=== PATIENT | male | born 1940 | race Caucasian/White ===

== ENCOUNTER 2020-02-06 09:39 | Outpatient (REF) | payer MEDICARE, SELFPAY ==
[2020-02-06 11:15] LABS: MANUAL DIFF FLAG NO
[2020-02-06 11:28] LABS: Eosinophils Absolute Auto 0.2 X10*3/uL (0.0-0.4); Eosinophils Percent Auto 3.9 % (0-4); Hemoglobin 13.2 g/dl (14.0-18.0); Imm Gran Abs Auto 0.01 X10*3/uL (0.00-0.03); Imm Gran Pct Auto 0.3 % (0.0-0.4); Lymphocytes Absolute Auto 0.9 X10*3/uL (1.2-4.9); Lymphocytes Percent Auto 24.3 % (20-40); Mean Corpuscular HGB Conc 32.2 g/dl (31.0-36.0); Mean Corpuscular Hemoglobin 31.9 pg (27.0-33.0); Monocytes Absolute Auto 0.4 X10*3/uL (0.1-1.2); Monocytes Percent Auto 9.3 % (2-11); Neutrophils Absolute Auto 2.4 X10*3/uL (2.0-8.3); Neutrophils Percent Auto 61.2 % (45-73); Platelet Count 190 X10*3/uL (160-400); Red Blood Count 4.14 X10*6/uL (4.60-5.80); Red Cell Distribution Width 12.4 % (11.0-16.0); White Blood Count 3.9 X10*3/uL (4.8-10.8)
[2020-02-06 12:36] LABS: Albumin Level 3.6 g/dL (3.5-5.0); Alkaline Phosphatase 70 U/L (39-117); Anion Gap 12 (12-20); Aspartate Amino Transferase 13 U/L (5-37); Bilirubin Total 0.6 mg/dL (0.0-1.0); Blood Urea Nitrogen 20 mg/dL (9-16); Calcium 8.5 mg/dL (8.4-10.2); Carbon Dioxide 28 mmol/L (22-29); Chloride 108 mmol/L (96-108); Cholesterol 131 mg/dL; Estimated Glomerular Filt Rate > 60; Glucose Fasting 86 mg/dL (60-99); HDL Cholesterol 52 mg/dL; LDL Cholesterol Calculated 58 mg/dl; Potassium 4.2 mmol/l (3.3-5.1); Sodium 144 mmol/L (135-145); Total Protein 6.2 g/dL (6.5-8.0); Triglycerides 109 mg/dL
[2020-02-06 13:06] LABS: Alanine Aminotransferase < 6 U/L (0-40)
== END 2020-02-06 09:40 | disposition home or self-care (01) ==
LOC: HO.LAB 09:39
PROVIDERS: PCP Internal Medicine Medical Oncology; Visit Provider Internal Medicine Medical Oncology
DX: E78.5 Hyperlipidemia, unspecified (principal); E55.9 Vitamin D deficiency, unspecified; E66.3 Overweight
CPT/HCPCS: 36415; 80053; 80061; 85025

== ENCOUNTER → 2020-07-12 10:28 | Outpatient (BNVA) | payer MEDICARE, SELFPAY | PROVIDERS: PCP Internal Medicine Medical Oncology; Visit Provider Urology | DX: N40.1 Benign prostatic hyperplasia with lower urinary tract symptoms (principal); N13.8 Other obstructive and reflux uropathy; R35.1 Nocturia; R39.12 Poor urinary stream | CPT/HCPCS: 51798; 81002; 99212 ==

== ENCOUNTER 2020-08-10 09:43 | Outpatient (REF) | payer MEDICARE, SELFPAY | END 2020-08-10 09:44 | disposition home or self-care (01) | LOC: HO.LAB 09:43 | PROVIDERS: PCP Internal Medicine Medical Oncology; Visit Provider Urology | DX: Z13.89 Encounter for screening for other disorder (principal) ==

== ENCOUNTER 2020-08-13 10:05 | Outpatient (REF) | payer MEDICARE, SELFPAY ==
[2020-08-13 10:56] LABS: MANUAL DIFF FLAG NO
[2020-08-13 11:01] LABS: Basophils Percent Auto 0.7 % (0-2); Eosinophils Absolute Auto 0.2 X10*3/uL (0.0-0.4); Eosinophils Percent Auto 5.4 % (0-4); Hematocrit 43.2 % (42-52); Hemoglobin 13.8 g/dl (14.0-18.0); Lymphocytes Percent Auto 24.4 % (20-40); Mean Corpuscular HGB Conc 31.9 g/dl (31.0-36.0); Mean Corpuscular Hemoglobin 30.9 pg (27.0-33.0); Mean Corpuscular Volume 96.9 fL (80-98); Mean Platelet Volume 11.2 fL (9.4-12.4); Monocytes Absolute Auto 0.4 X10*3/uL (0.1-1.2); Monocytes Percent Auto 10.3 % (2-11); Neutrophils Absolute Auto 2.5 X10*3/uL (2.0-8.3); Neutrophils Percent Auto 59.2 % (45-73); Platelet Count 165 X10*3/uL (160-400); Red Blood Count 4.46 X10*6/uL (4.60-5.80); Red Cell Distribution Width 12.9 % (11.0-16.0); White Blood Count 4.3 X10*3/uL (4.8-10.8)
[2020-08-13 11:26] LABS: Alanine Aminotransferase < 6 U/L (0-40); Albumin Level 3.5 g/dL (3.5-5.0); Alkaline Phosphatase 79 U/L (39-117); Anion Gap 13 (12-20); Aspartate Amino Transferase 15 U/L (5-37); Bilirubin Total 0.4 mg/dL (0.0-1.0); Blood Urea Nitrogen 20 mg/dL (9-16); Calcium 8.9 mg/dL (8.4-10.2); Carbon Dioxide 26 mmol/L (22-29); Chloride 109 mmol/L (96-108); Cholesterol 127 mg/dL; Estimated Glomerular Filt Rate > 60; Glucose Fasting 85 mg/dL (60-99); HDL Cholesterol 46 mg/dL; LDL Cholesterol Calculated 68 mg/dl; Potassium 4.8 mmol/L (3.3-5.1); Sodium 143 mmol/L (135-145); Total Protein 6.4 g/dL (6.5-8.0); Triglycerides 66 mg/dL
== END 2020-08-13 10:06 | disposition home or self-care (01) ==
LOC: HO.LAB 10:05
PROVIDERS: PCP Internal Medicine Medical Oncology; Visit Provider Internal Medicine Medical Oncology
DX: G20 Parkinson's disease (principal); E78.5 Hyperlipidemia, unspecified; E66.3 Overweight
CPT/HCPCS: 36415; 80053; 80061; 85025

== ENCOUNTER 2020-11-18 11:00 | Outpatient (REF) | payer MEDICARE, SELFPAY ==
[2020-11-18 11:49] LABS: Basophils Percent Auto 1.1 % (0-2); Eosinophils Absolute Auto 0.2 X10*3/uL (0.0-0.4); Eosinophils Percent Auto 4.4 % (0-4); Hematocrit 42.4 % (42-52); Hemoglobin 14.2 g/dl (14.0-18.0); Imm Gran Abs Auto 0.01 X10*3/uL (0.00-0.03); Imm Gran Pct Auto 0.3 % (0.0-0.4); Lymphocytes Percent Auto 26.6 % (20-40); MANUAL DIFF FLAG SCAN; Mean Corpuscular HGB Conc 33.5 g/dl (31.0-36.0); Mean Corpuscular Hemoglobin 31.9 pg (27.0-33.0); Mean Corpuscular Volume 95.3 fL (80-98); Mean Platelet Volume 11.5 fL (9.4-12.4); Monocytes Absolute Auto 0.4 X10*3/uL (0.1-1.2); Neutrophils Absolute Auto 2.1 X10*3/uL (2.0-8.3); Neutrophils Percent Auto 56.6 % (45-73); PLT CLUMP 1; Red Blood Count 4.45 X10*6/uL (4.60-5.80); Red Cell Distribution Width 12.6 % (11.0-16.0); SCAN SMEAR FLAG 1
[2020-11-18 12:14] LABS: Alanine Aminotransferase < 6 U/L (0-40); Albumin Level 3.6 g/dL (3.5-5.0); Alkaline Phosphatase 77 U/L (39-117); Anion Gap 11 (12-20); Aspartate Amino Transferase 13 U/L (5-37); Bilirubin Total 0.2 mg/dL (0.0-1.0); Blood Urea Nitrogen 19 mg/dL (9-16); Carbon Dioxide 27 mmol/L (22-29); Chloride 108 mmol/L (96-108); Cholesterol 120 mg/dL; Estimated Glomerular Filt Rate 51; Glucose Fasting 91 mg/dL (60-99); HDL Cholesterol 41 mg/dL; LDL Cholesterol Calculated 64 mg/dl; Potassium 4.4 mmol/L (3.3-5.1); Sodium 142 mmol/L (135-145); Total Protein 6.4 g/dL (6.5-8.0); Triglycerides 79 mg/dL
[2020-11-18 12:22] LABS: White Blood Count 3.7 X10*3/uL (4.8-10.8)
[2020-11-18 12:23] LABS: Platelet Count 134 X10*3/uL (160-400)
[2020-11-18 12:24] LABS: SLIDE REVIEW VERIFIED
[2020-11-18 12:28] LABS: Prostate Specific Antigen 3.71 ng/mL (<0.05-4.0); Vitamin D 25-OH Total 42.6 ng/mL (>30)
== END 2020-11-18 11:01 | disposition home or self-care (01) ==
LOC: HO.LAB 11:00
PROVIDERS: PCP Internal Medicine Medical Oncology; Visit Provider Internal Medicine Medical Oncology
DX: G20 Parkinson's disease (principal); E78.5 Hyperlipidemia, unspecified; E55.9 Vitamin D deficiency, unspecified; E66.3 Overweight; Z12.5 Encounter for screening for malignant neoplasm of prostate
CPT/HCPCS: 36415; 80053; 80061; 82306; 84153; 85025

== ENCOUNTER → 2021-01-14 09:35 | Outpatient (BNVA) | payer MEDICARE, SELFPAY | PROVIDERS: PCP Internal Medicine Medical Oncology; Visit Provider Urology | DX: Z13.89 Encounter for screening for other disorder (principal) | CPT/HCPCS: Q3014 ==

== ENCOUNTER → 2021-02-13 08:42 | Outpatient (BNVA) | payer MEDICARE, SELFPAY | PROVIDERS: PCP Internal Medicine Medical Oncology; Visit Provider Urology | DX: N40.1 Benign prostatic hyperplasia with lower urinary tract symptoms (principal); N13.8 Other obstructive and reflux uropathy; R39.12 Poor urinary stream; R35.1 Nocturia | CPT/HCPCS: Q3014 ==

== ENCOUNTER 2021-02-18 08:58 | Outpatient (REF) | payer MEDICARE, SELFPAY ==
[2021-02-18 09:13] LABS: MANUAL DIFF FLAG NO
[2021-02-18 09:51] LABS: Eosinophils Absolute Auto 0.2 X10*3/uL (0.0-0.4); Eosinophils Percent Auto 4.8 % (0-4); Hematocrit 44.6 % (42.0-52.0); Hemoglobin 14.6 g/dl (14.0-18.0); Imm Gran Abs Auto 0.01 X10*3/uL (0.00-0.03); Imm Gran Pct Auto 0.2 % (0.0-0.4); Lymphocytes Percent Auto 23.3 % (20-40); Mean Corpuscular HGB Conc 32.7 g/dl (31.0-36.0); Mean Corpuscular Hemoglobin 31.6 pg (27.0-33.0); Mean Corpuscular Volume 96.5 fL (80.0-98.0); Mean Platelet Volume 11.1 fL (9.4-12.4); Monocytes Absolute Auto 0.3 X10*3/uL (0.1-1.2); Monocytes Percent Auto 8.2 % (2-11); Neutrophils Absolute Auto 2.6 x10*3/uL (2.0-8.3); Neutrophils Percent Auto 62.5 % (45-73); Platelet Count 159 X10*3/uL (160-400); Red Blood Count 4.62 X10*6/uL (4.60-5.80); Red Cell Distribution Width 12.4 % (11.0-16.0); White Blood Count 4.2 X10*3/uL (4.8-10.8)
[2021-02-18 10:14] LABS: Alanine Aminotransferase 6 U/L (0-40); Albumin Level 3.6 g/dL (3.5-5.0); Alkaline Phosphatase 89 U/L (39-117); Anion Gap 13 (12-20); Aspartate Amino Transferase 17 U/L (5-37); Bilirubin Total 0.5 mg/dL (0.0-1.0); Blood Urea Nitrogen 21 mg/dL (9-16); Calcium 8.7 mg/dL (8.4-10.2); Carbon Dioxide 24 mmol/L (22-29); Chloride 111 mmol/L (96-108); Cholesterol 130 mg/dL; Estimated Glomerular Filt Rate > 60; Glucose Fasting 94 mg/dL (60-99); HDL Cholesterol 50 mg/dL; LDL Cholesterol Calculated 67 mg/dl; Potassium 4.6 mmol/L (3.3-5.1); Sodium 143 mmol/L (135-145); Total Protein 6.4 g/dL (6.5-8.0); Triglycerides 69 mg/dL
== END 2021-02-18 08:59 | disposition home or self-care (01) ==
LOC: HO.LAB 08:58
PROVIDERS: Absent Provider Urology; PCP Internal Medicine Medical Oncology; Visit Provider Internal Medicine Medical Oncology
DX: G20 Parkinson's disease (principal)
CPT/HCPCS: 36415; 80053; 80061; 85025

== ENCOUNTER 2021-05-08 10:47 | Emergency (ER) | payer MEDICARE, SELFPAY ==
[2021-05-08] VITALS (7 sets, daily range): BP systolic 148–231; BP diastolic 72–98; PULSE 76–96; RESP 12–20; TEMP 36.4–36.8; O2SAT 97–98; BMI 26.4
--- NOTE | ~2021-05-08 | XR_ITS ---
EXAMINATION: XR CHEST CLINICAL INFORMATION: Shortness of breath COMPARISON: Previous chest x-ray July 2007 TECHNIQUE: 2 views of the chest were obtained. FINDINGS: The cardiac and mediastinal contours are unremarkable. The lung volumes are low. There is elevation of the right hemidiaphragm. There is crowding of the central bronchovascular markings likely related to low lung volumes. The lungs are otherwise clear. There is no pleural effusion or pneumothorax. There are degenerative changes of the spine. XR/XR chest 2V IMPRESSION: Low lung volumes and elevated right hemidiaphragm. No evidence for acute disease in the chest.
--- NOTE | ~2021-05-08 | US_ITS ---
EXAMINATION: US VENOUS ULTRASOUND WITH DOPPLER LOWER EXTREMITY, BILATERAL CLINICAL INFORMATION: Pain and swelling COMPARISON: None TECHNIQUE: Ultrasound of the deep veins is performed from the hip to the calf with compression sonography and color and pulse Doppler assessment. Spectral analysis with color-flow imaging is performed. FINDINGS: RIGHT: There is normal venous compression and respiratory variation and augmented flow. The visualized common femoral vein, superficial femoral vein, profunda femoral vein, popliteal vein, and the trifurcation region shows no evidence of deep venous thrombosis. Or small right inguinal lymph nodes. There is no significant popliteal fossa cyst. LEFT: There is normal venous compression and respiratory variation and augmented flow. The visualized common femoral vein, superficial femoral vein, profunda femoral vein, popliteal vein, and the trifurcation region shows no evidence of deep venous thrombosis. There is no significant popliteal fossa cyst. US/US venous duplex LE BI IMPRESSION: No DVT demonstrated in the bilateral lower extremity.
--- NOTE | 2021-05-08 11:14 | ED_ITS ---
HPI - General Adult General Chief complaint: Extremity Injury, Lower Stated complaint: BILAT PEDAL EDEMA Time Seen by Provider: 05/08/21 10:51 Source: patient Mode of arrival: EMS Limitations: no limitations History of Present Illness HPI narrative: Patient is an 80-year-old male with reports of a past medical history including Parkinson's disease, BPH, GERD, hypercholesterolemia. He reports that when attempting to get out of bed this morning he was unable to stand due to increased pain and swelling to his bilateral lower extremities. Pain is most significant throughout the toes and plantar aspect of feet, but he does have pain to the bilateral calf and knees as well. Reports that he has been having bilateral lower extremity swelling for about 1 year which he has been evaluated by his primary care provider for. He is uncertain as to why this is occurring. He says that it gets better at times and worse at times. In addition, he has been experiencing dyspnea with exertion, most noted when trying to walk to the mailbox but this has only been occurring over the last 3 months. He denies current or recent fevers, chills, dizziness or lightheadedness, persistent headaches, neck pain, chest pain, palpitations, shortness of breath while at rest. Denies any recent injury or fall. When asked, he denies being on any diuretics antibiotics regarding treatment of the edema. Has tried compression stockings but this seems to make the swelling worse. Does not consistently elevate legs. Onset (ago): year(s) Location: lower extremity (Bilateral) Radiation: non-radiation Quality: aching Pain Consistency: intermittent Relieving factors: immobilization and rest Exacerbating factors: movement Associated symptoms: shortness of breath (Dyspnea with exertion) Treatments prior to arrival: none Related Data Home Medications Medication Instructions Recorded Confirmed atorvastatin 20 mg tablet 20 mg PO DAILY 01/14/21 05/08/21 carbidopa 25 mg-levodopa 100 1 tab PO 01/14/21 05/08/21 mg 0100,0700,1300,1900 tablet carbidopa ER 50 mg-levodopa 1 tab PO BEDTIME 01/14/21 05/08/21 200 mg tablet,extended release gabapentin 100 mg capsule 100 mg PO BID PRN 01/14/21 05/08/21 naproxen 500 mg tablet 500 mg PO Q12H PRN 01/14/21 05/08/21 omeprazole 20 mg 20 mg PO DAILY@0630 01/14/21 05/08/21 capsule,delayed release multivitamin 1 tab PO DAILY 05/08/21 05/08/21 Previous Rx's Medication Instructions Recorded finasteride 5 mg tablet 5 mg PO DAILY 90 Days #90 tab 01/14/21 tamsulosin 0.4 mg capsule 0.8 mg PO DAILY 90 Days #180 cap 02/11/21 furosemide 20 mg tablet (Lasix) 20 mg PO DAILY 3 Days #3 tab 05/08/21 Allergies Allergy/AdvReac Type Severity Reaction Status Date / Time No Known Allergies Allergy Verified 02/13/21 09:45 [No Known Allergies*] Review of Systems Verdana 4l Review of Systems: Verdana 4d [place] 4Bd Constitutional: [place] 4d No weight loss, fever, chills, weakness or fatigue. [place] 4Bd HEENT: [place] 4d No visual loss, blurred vision, double vision or yellow sclera. No hearing loss, sneezing, congestion, runny nose or sore throat. ArialArial 4Bd Skin: No rash or itching. Cardiovascular: pedal edema as noted in the HPI. No chest pain, chest pressure or chest discomfort. No palpitations. Respiratory: + dyspnea on exertion. No shortness of breath while at rest, cough or sputum production. Gastrointestinal: No anorexia, nausea, vomiting or diarrhea. No abdominal pain or blood in stool. Genitourinary: No burning micturition. No urinary frequency or incontinence. Neurologic: No headache, dizziness, syncope, unilateral weakness, ataxia, numbness or tingling in the extremities. Musculoskeletal: No muscle pain, back pain, or stiffness. Hematologic: No bleeding or bruising. Lymphatics: No enlarged lymph nodes. Psychiatric:No depression or anxiety. Endocrine: No reports of sweating. No cold or heat intolerance. No polyuria or polydipsia. [facility] Past Medical History Attestation statement: The following information was validated with the patient. Source: old records reviewed Medical History History of elevated PSA Surgical History History of rectal polypectomy History of rigid sigmoidoscopy Hx of colonoscopy Hx of rectal polypectomy Hx of surgical amputation of finger Family History Family History Father Lung cancer Mother Heart attack Social History Social History Alcohol intake: never Patient Tobacco Use Status: Never used Tobacco Use of substances other than those prescribed or required for medical reasons: No Advance Directives: Yes Advance Directives on File: Yes Advance Directives Date on File: 05/08/21 Physical Exam Verdana 4l Vital Signs: Verdana 4d Verdana 4d Vital Signs: Verdana 4d Verd[place] 4Bd Last Vital Signs Verdana 4d Rn Internal Medicine New 4d Rn Internal Medicine New 4d Temp 97.6 F 05/08/21 15:24 Rn Internal Medicine New 4d Pulse 92 05/08/21 16:38 Rn Internal Medicine New 4d Resp 12 05/08/21 16:38 BP 186/98 H 05/08/21 17:04 Pulse Ox 98 05/08/21 16:38 BMI result Body Mass Index 26.4 Vital signs have been reviewed and appeared to be correct. Blood pressure elevated 208/92 improved to 177/82.? Heart rate normal.? Respiration rate normal. Temperature normal.? Oxygen saturation normal. Appearance: Alert.?Oriented to person, place and time. No acute distress.?Normal affect. Eyes: Pupils equal, round and reactive to light.? ENT: Pharynx normal.?? Neck: Normal inspection.? Neck supple.?? CVS: Heart sounds normal. Normal heart rate and rhythm.?No JVD.?Unable to palpate bilateral dorsalis pedis/posterior tibial pulses due to degree of edema. +++ Doppler signal ? Respiratory: No respiratory distress.? Lung sounds clear to bilateral upper lobes, rales to bilateral lower lobes Abdomen: Soft and non-tender. Normoactive bowel sounds. No pulsatile mass.?? Skin: Skin warm and dry.? Normal skin color.? Normal skin turgor.?? Extremities: Bilateral 3+ pitting edema of the lower extremities. Calf tenderness to palpation bilaterally? Neuro: Moves all extremities spontaneously. Sensation intact bilaterally. No focal neuro deficits. Course Course Course Narrative: Patient's knee 1-year-old man being evaluated for bilateral lower extremity edema that is a chronic nature but noted to be worse today in addition to increase the pain. It is unclear as to why she has been experiencing the edema. Denies any known history of heart failure, atrial fibrillation, hypertension, vascular disease, past history of DVT. PE. CBC to exclude leukocytosis or anemia, CMP to evaluate for acute kidney injury, abnormal hepatic function, electrolyte abnormality, BNP, troponin, EKG to evaluate for fluid overload, ACS, arrhythmia, chest x-ray to evaluate for pulmonary edema, bilateral lower extremity doppler ultrasound to exclude DVT. Disposition pending results. Reevaluation(s) Reevaluation #1: Mild leukopenia WBC 4.2 she appears to be chronic, mild anemia with hemoglobin 13.7 hematocrit 41.7 consistent with prior labs. COVID-19 positive. BUN mildly elevated at 18 with normal creatinine 1.02 suspect this may be due to mild dehydration, will encourage p.o. fluids. BNP 221, albumin 3.4, chest x-ray reveals no evidence for acute disease, not suggestive of overt fluid overload. Ultrasound bilateral lower extremities reveals no DVT. Bilateral lower extremity edema he is not warm to touch, or erythematous to suggest cellulitis. Will obtain physical therapy evaluation as the patient resides independently, is ambulatory with a cane, but had increased difficulty getting out of bed today. Time: 12:42 Reevaluation #2: Physical therapy unable to perform evaluation as patient is hypertensive 208/92. We will plan for Lasix 40 mg orally in addition to potassium replacement and will give lisinopril 10 mg orally and re-evaluate. Patient would like to be discharged home today, does report that he was able to walk from the front door out to the car today without assistance and feels he is comfortable being discharged home. He does have a personal lead care manager 5 hours a day who comes into the home. Time: 14:36 Reevaluation #3: 1640: Blood pressure on repeat 186/98. Ambulation trial with nursing staff, steady gait with the use of cane. Patient declines staying emergency department for physical therapy evaluation, would like to be discharged home, he feels comfortable and safe with that plan. Patient in no acute respiratory distress, managing airway and speaking in clear full sentences. Patient advised of results. Discussed elevated blood pressure readings, advised a plan for discharge home to isolate due to COVID-19, will be given a prescription for Lasix to be taken daily. Patient advised to contact primary care provider tomorrow to schedule a follow-up visit in 1-3 days. Reviewed return precautions to the emergency department, all questions answered, patient agreeable with plan of care. Medical Decision Making Lab Data Result diagrams: 05/08/21 12:10 05/08/21 12:07 Labs: Lab Results 05/08/21 05/08/21 05/08/21 Range/Units 12:07 12:07 12:07 WBC (4.8-10.8) X10*3/uL RBC (4.60-5.80) X10*6/uL Hgb (14.0-18.0) g/dl Hct (42.0-52.0) % MCV (80.0-98.0) fL MCH (27.0-33.0) pg MCHC (31.0-36.0) g/dl RDW (11.0-16.0) % Plt Count (160-400) X10*3/uL MPV (9.4-12.4) fL Immature Gran % (Auto) (0.0-0.4) % Neut % (Auto) (45-73) % Lymph % (Auto) (20-40) % Lee % (Auto) (2-11) % Eos % (Auto) (0-4) % Baso % (Auto) (0-2) % Lymph # (Auto) (1.2-4.9) X10*3/uL Lee # (Auto) (0.1-1.2) X10*3/uL Eos # (Auto) (0.0-0.4) X10*3/uL Baso # (Auto) (0.0-0.2) X10*3/uL Abs Immat Gran (auto) (0.00-0.03) X10*3/uL Absolute Neuts (auto) (2.0-8.3) x10*3/uL Absolute Nucleated RBC (0.0-0.012) X10*3/uL Nucleated RBC % (auto) (0.0-0.2) /100WBC Sodium 141 (135-145) mmol/L Potassium 4.3 (3.3-5.1) mmol/L Chloride 111 H (96-108) mmol/L Carbon Dioxide 24 (22-29) mmol/L Anion Gap 10 L (12-20) BUN 18 H (9-16) mg/dL Creatinine 1.02 (0.5-1.4) mg/dL Estim Creat Clear Calc 61.2 Estimated GFR > 60 Random Glucose 110 (60-115) mg/dL Calcium 8.9 (8.4-10.2) mg/dL Total Bilirubin 0.3 (0.0-1.0) mg/dL AST 16 (5-37) U/L ALT < 6 (0-40) U/L Alkaline Phosphatase 80 (39-117) U/L Troponin I High Sens 4.4 (<3.5-35.0) ng/L B-Natriuretic Peptide (<100) pg/mL Total Protein 6.4 L (6.5-8.0) g/dL Albumin 3.4 L (3.5-5.0) g/dL Urine Color Urine Appearance Urine pH (5.0-8.0) Ur Specific [place] (1.005-1.025) Urine Protein (NEG-TRACE) MG/DL Urine Glucose (UA) (NEG) MG/DL Urine Ketones (NEG) MG/DL Urine Blood (NEG) Urine Nitrite (NEG) Ur Leukocyte Esterase (NEG) COVID-19 (AUGUST) Positive A (Negative) COVID-19 Clin Com See Note 05/08/21 05/08/21 05/08/21 Range/Units 12:10 12:10 13:28 WBC 4.2 L (4.8-10.8) X10*3/uL RBC 4.32 L (4.60-5.80) X10*6/uL Hgb 13.7 L (14.0-18.0) g/dl Hct 41.7 L (42.0-52.0) % MCV 96.5 (80.0-98.0) fL MCH 31.7 (27.0-33.0) pg MCHC 32.9 (31.0-36.0) g/dl RDW 12.8 (11.0-16.0) % Plt Count 174 (160-400) X10*3/uL MPV 9.9 (9.4-12.4) fL Immature Gran % (Auto) 0.5 H (0.0-0.4) % Neut % (Auto) 74.4 H (45-73) % Lymph % (Auto) 14.0 L (20-40) % Lee % (Auto) 8.3 (2-11) % Eos % (Auto) 2.6 (0-4) % Baso % (Auto) 0.2 (0-2) % Lymph # (Auto) 0.6 L (1.2-4.9) X10*3/uL Lee # (Auto) 0.4 (0.1-1.2) X10*3/uL Eos # (Auto) 0.1 (0.0-0.4) X10*3/uL Baso # (Auto) 0.0 (0.0-0.2) X10*3/uL Abs Immat Gran (auto) 0.02 (0.00-0.03) X10*3/uL Absolute Neuts (auto) 3.1 (2.0-8.3) x10*3/uL Absolute Nucleated RBC 0.000 (0.0-0.012) X10*3/uL Nucleated RBC % (auto) 0.0 (0.0-0.2) /100WBC Sodium (135-145) mmol/L Potassium (3.3-5.1) mmol/L Chloride (96-108) mmol/L Carbon Dioxide (22-29) mmol/L Anion Gap (12-20) BUN (9-16) mg/dL Creatinine (0.5-1.4) mg/dL Estim Creat Clear Calc Estimated GFR Random Glucose (60-115) mg/dL Calcium (8.4-10.2) mg/dL Total Bilirubin (0.0-1.0) mg/dL AST (5-37) U/L ALT (0-40) U/L Alkaline Phosphatase (39-117) U/L Troponin I High Sens (<3.5-35.0) ng/L B-Natriuretic Peptide 221 H (<100) pg/mL Total Protein (6.5-8.0) g/dL Albumin (3.5-5.0) g/dL Urine Color YELLOW Urine Appearance CLEAR Urine pH 7.0 (5.0-8.0) Ur Specific [place] 1.020 (1.005-1.025) Urine Protein NEG (NEG-TRACE) MG/DL Urine Glucose (UA) NEG (NEG) MG/DL Urine Ketones NEG (NEG) MG/DL Urine Blood NEG (NEG) Urine Nitrite NEG (NEG) Ur Leukocyte Esterase NEG (NEG) COVID-19 (AUGUST) (Negative) COVID-19 Clin Com Imaging Data Chest x-ray: Attestation: I personally reviewed and interpreted this imaging study as follows: Radiologist's impression: IMPRESSION: Low lung volumes and elevated right hemidiaphragm. No evidence for acute disease in the chest. bilateral LE US: Attestation: I personally reviewed and interpreted this imaging study as follows: ECG Data Attestation: I personally reviewed and interpreted this ECG as follows: Prior ECG tracings: available for review Interpretation: Rate: 70 Rhythm:? [place]:? Normal Normal P waves.? Normal JANNIE.?? Normal QRS complex.?? qTC: 421 prior studies: 2011? The study has been interpreted contemporaneously by me. Discharge Plan Discharge Clinical Impression: Blood pressure elevated without history of HTN, COVID-19, Bilateral edema of lower extremity Patient Disposition: Home, Self-Care Instructions: Leg Edema (ED), Hypertension (ED) Additional Instructions: You were evaluated in the emergency department today for worsening pain and swelling of your lower extremities. Overall your blood work was normal. Your chest x-ray was normal. We did an ultrasound of both of your legs which re vealed no blood clot. Your blood pressure has been elevated while you were in the emergency department. You have been given an new prescription for Lasix, this is a water pill, and it will need to urinate more frequently. In addition, your COVID-19 test was positive. You should isolate and remain home for 5 days. Should you develop chest pain, worsening shortness of breath while walking, or concerns about your breathing you should return to the emergency department immediately to be evaluated. If you develop any new or concerning symptoms you should be re-evaluated. Please contact your primary care provider to schedule a follow-up appointment in 1-3 days. Prescriptions: New furosemide [Lasix] 20 mg tablet 20 mg PO DAILY 3 Days Qty: 3 0RF No Action tamsulosin 0.4 mg capsule 0.8 mg PO DAILY 90 Days Qty: 180 3RF multivitamin Tablet 1 tab PO DAILY 0RF naproxen 500 mg tablet 500 mg PO Q12H PRN (Reason: pain) 0RF gabapentin 100 mg capsule 100 mg PO BID PRN (Reason: Pain) 0RF omeprazole 20 mg capsule,delayed release(DR/EC) 20 mg PO DAILY@0630 0RF carbidopa-levodopa 50-200 mg tablet extended release 1 tab PO BEDTIME 0RF carbidopa-levodopa 25-100 mg tablet 1 tab PO 0100,0700,1300,1900 0RF atorvastatin 20 mg tablet 20 mg PO DAILY 0RF finasteride 5 mg tablet 5 mg PO DAILY 90 Days Qty: 90 3RF Interventions: ED Discharge Assessment Last Done: 05/08/21 17:09 Discharge Date/Time: 05/08/21 17:22
--- NOTE | 2021-05-08 11:15 | ECG_ITS ---
Test Reason : LEG SWELLING Blood Pressure : / mmHG Vent. Rate : 070 BPM Atrial Rate : 070 BPM P-R Int : 174 ms QRS Dur : 084 ms QT Int : 390 ms P-R-T Axes : 049 -24 000 degrees QTc Int : 421 ms Sinus rhythm with occasional Premature ventricular complexes Minimal voltage criteria for LVH, may be normal variant ( R in aVL ) Nonspecific ST abnormality Abnormal ECG When compared with ECG of 25-JAN-2012 08:19, Premature ventricular complexes are now Present Referred By: Sanam Plaza Electronically Signed By:ESTRELLA WINSTON MD
[2021-05-08 12:15] LABS: MANUAL DIFF FLAG NO
[2021-05-08 12:17] LABS: Basophils Percent Auto 0.2 % (0-2); Eosinophils Absolute Auto 0.1 X10*3/uL (0.0-0.4); Eosinophils Percent Auto 2.6 % (0-4); Hematocrit 41.7 % (42.0-52.0); Hemoglobin 13.7 g/dl (14.0-18.0); Imm Gran Abs Auto 0.02 X10*3/uL (0.00-0.03); Imm Gran Pct Auto 0.5 % (0.0-0.4); Lymphocytes Absolute Auto 0.6 X10*3/uL (1.2-4.9); Mean Corpuscular HGB Conc 32.9 g/dl (31.0-36.0); Mean Corpuscular Hemoglobin 31.7 pg (27.0-33.0); Mean Corpuscular Volume 96.5 fL (80.0-98.0); Mean Platelet Volume 9.9 fL (9.4-12.4); Monocytes Absolute Auto 0.4 X10*3/uL (0.1-1.2); Monocytes Percent Auto 8.3 % (2-11); Neutrophils Absolute Auto 3.1 x10*3/uL (2.0-8.3); Neutrophils Percent Auto 74.4 % (45-73); Platelet Count 174 X10*3/uL (160-400); Red Blood Count 4.32 X10*6/uL (4.60-5.80); Red Cell Distribution Width 12.8 % (11.0-16.0); White Blood Count 4.2 X10*3/uL (4.8-10.8)
[2021-05-08 12:24] LABS: COVID-19 Test Positive (Negative); IDNOW Serial# 9DD0AD1C
[2021-05-08 12:33] LABS: Alanine Aminotransferase < 6 U/L (0-40); Albumin Level 3.4 g/dL (3.5-5.0); Alkaline Phosphatase 80 U/L (39-117); Anion Gap 10 (12-20); Aspartate Amino Transferase 16 U/L (5-37); Bilirubin Total 0.3 mg/dL (0.0-1.0); Blood Urea Nitrogen 18 mg/dL (9-16); Calcium 8.9 mg/dL (8.4-10.2); Carbon Dioxide 24 mmol/L (22-29); Chloride 111 mmol/L (96-108); Creatinine Clr Calc Pharmacy 61.2; Estimated Glomerular Filt Rate > 60; Glucose Random 110 mg/dL (60-115); Potassium 4.3 mmol/L (3.3-5.1); Sodium 141 mmol/L (135-145); Total Protein 6.4 g/dL (6.5-8.0)
[2021-05-08 12:38] LABS: B Type Natriuretic Peptide 221 pg/mL (<100)
[2021-05-08 12:39] LABS: Troponin-I High Sensitivity 4.4 ng/L (<3.5-35.0)
[2021-05-08 13:36] LABS: Appearance Urine CLEAR; Color Urine YELLOW; Glucose Urine UA NEG (NEG); Leukocyte Esterase Urine NEG (NEG); Nitrite Urine NEG (NEG); Urine Blood NEG (NEG); Urine Ketones NEG (NEG); Urine Protein NEG (NEG-TRACE)
--- NOTE | 2021-05-08 13:54 | PHA.MEDREC ---
Pharmacy Consult ? Medication Reconciliation Pharmacy has completed the medication reconciliation. Patient reports to be on Carbidopa\levodopa IR QID and reported times. His pharmcy does not have any fill history for this medications. [facility] does not have an update list of his medications. It was last update in November 2020. Angy Kirk, PegD
[2021-05-08] MEDS: Potassium Chloride ER 20 MEQ TAB.ER.PRT PO (14:47)
[2021-05-08] MEDS: lisinopriL 10 MG TABLET PO (14:47)
[2021-05-08] MEDS: Furosemide 40 MG TABLET PO (14:47)
--- NOTE | 2021-05-08 15:43 | MHC.CM.ED ---
Received case management consult. Physical therapy eval unable to be performed due to elevated BP. Patient is positive for Covid. Patient was d/c'd home before case management assessment could be completed.
== END 2021-05-08 17:22 | disposition home or self-care (01) ==
PROVIDERS: Nurse Practitioner Family; Emergency Provider Emergency Medicine; PCP Internal Medicine Medical Oncology
DX: U07.1 COVID-19 (principal); R60.0 Localized edema; M79.662 Pain in left lower leg; M79.661 Pain in right lower leg; R06.02 Shortness of breath; R03.0 Elevated blood-pressure reading, without diagnosis of hypertension
CPT/HCPCS: 36415; 71046; 80053; 81003; 83880; 84484; 85025; 87635; 93005; 93970; 97162; 99284

== ENCOUNTER → 2021-08-21 08:22 | Outpatient (BNVA) | payer MEDICARE, SELFPAY | PROVIDERS: PCP Internal Medicine Medical Oncology; Visit Provider Urology | DX: N40.1 Benign prostatic hyperplasia with lower urinary tract symptoms (principal); N13.8 Other obstructive and reflux uropathy; R35.1 Nocturia | CPT/HCPCS: Q3014 ==

== ENCOUNTER 2021-11-30 12:27 | Emergency (ER) | payer MEDICARE, SELFPAY ==
--- NOTE | ~2021-11-30 | CT_ITS ---
EXAMINATION: CT CHEST, ABDOMEN, AND PELVIS WITH CONTRAST CLINICAL INFORMATION: Status post fall COMPARISON: CT scan of the abdomen and pelvis from 10/16/2019 TECHNIQUE: Multidetector volumetric CT imaging of the chest, abdomen, and pelvis was obtained after the administration of 100 mL of Omnipaque 300 intravenous contrast without immediate adverse reactions. Axial MIP volume rendering provided. Sagittal and coronal reformatted images were obtained. This CT examination was performed using dose optimization techniques as appropriate, variously including the following: *Automated exposure control *Adjustment of mA and/or kV according to patient size (this includes techniques or standardized protocols for targeted exams where dose is matched to indication/reason for exam; i.e. extremities or head) *Use of iterative reconstruction technique DLP: 432 mGy-cm FINDINGS: LUNGS: The lungs are clear with no evidence of inflammation or nodules. MEDIASTINUM: The mediastinum appears unremarkable. PLEURA: There is no pleural effusion. No pleural mass or thickening. AXILLA: No lymphadenopathy. LIVER, GALLBLADDER, AND BILIARY TREE: Liver is of low attenuation due to hepatic steatosis without intrahepatic masses or ductal dilatation. Bladder physiologically distended without stones. PANCREAS: Unremarkable SPLEEN: Unremarkable ADRENAL GLANDS: Unremarkable KIDNEYS AND URETERS: The bilateral exophytic simple cysts with the largest lobulated cyst on the left along the lateral aspect of the kidney measured 15.5 x 8.2 x 12.6 cm and another cyst on the left measured 9.1 x 8.5 x 8.2 cm on the right there is an exophytic lower pole 7.9 x 7.2 x 7.4 cm. No hydronephrosis or stones. Ureters are not dilated. BLADDER: Unremarkable GASTROINTESTINAL TRACT: Changes of sigmoid colon diverticulosis without diverticulitis. No evidence of bowel obstruction. Appendix is unremarkable ABDOMINAL WALL: There is diastases recti LYMPH NODES: No evidence of adenopathy by size criteria. VASCULAR: Abdominal aorta is calcified but not dilated PELVIC VISCERA: Prostate is enlarged and heterogeneous. Seminal vesicles unremarkable. Phleboliths seen in the pelvis. OSSEOUS STRUCTURES: There are fractures of ribs #7 and 6 on the right along the anterior axillary line on the right. Ribs #6 broken in 2 places. There is subcutaneous fatty haziness in the right gluteal area related to trauma. Less prominent haziness seen in the lower flank subcutaneously. There are multilevel degenerative changes and osteopenia. CT/CT abdomen pelvis wo con IMPRESSION: Fracture of ribs numbers 6 and 7 on the right without fragment displacement. Diffuse osteopenia There are large bilateral renal cysts. Hepatic steatosis. Diastases recti.
--- NOTE | ~2021-11-30 | CT_ITS ---
EXAMINATION: CT HEAD WITHOUT CONTRAST CLINICAL INFORMATION: Change in mental status. COMPARISON: None TECHNIQUE: Contiguous axial imaging was performed from the skull base to vertex without intravenous administration of contrast. This CT examination was performed using dose optimization techniques as appropriate, variously including the following: *Automated exposure control *Adjustment of mA and/or kV according to patient size (this includes techniques or standardized protocols for targeted exams where dose is matched to indication/reason for exam; i.e. extremities or head) *Use of iterative reconstruction technique DLP: 774 mGy-cm FINDINGS: There is no acute intra-axial, extra-axial bleed, masses or midline shift. There is no acute infarction evolution. There is no edema. The lateral ventricles are symmetrical in size and configuration with mild prominence. The cortical sulci mildly prominent as well. The leiva to white matter differentiation is maintained normal. Bone windows reveal no calvarial abnormality. There is no scalp soft tissue abnormality. The paranasal sinuses and mastoid air cells are well aerated. CT/CT head/brain wo con IMPRESSION: No acute intracranial process seen. Mild cerebral volume loss
--- NOTE | ~2021-11-30 | CT_ITS ---
EXAMINATION: CT HEAD WITHOUT IV CONTRAST CT CERVICAL SPINE WITHOUT IV CONTRAST INDICATION: Status post fall. COMPARISON: None available. TECHNIQUE: Multidetector CT acquisitions of the head and cervical spine were obtained without IV contrast. Multiplanar reformats were acquired and utilized for image interpretation. This CT examination was performed using dose optimization techniques as appropriate, variously including the following: *Automated exposure control *Adjustment of mA and/or kV according to patient size (this includes techniques or standardized protocols for targeted exams where dose is matched to indication/reason for exam; i.e. extremities or head) *Use of iterative reconstruction technique FINDINGS: HEAD: There is global cerebral volume loss and there is mild chronic microangiopathy. There is no intracranial hemorrhage, hydrocephalus, extra-axial surface collection, midline shift, or other herniation pattern. Ross to white matter differentiation is diffusely maintained without evidence of an evolved acute territorial infarct. The basilar cisterns are preserved. No significant soft tissue abnormality. No acute osseous abnormality. The paranasal sinuses and the mastoid air cells are well aerated. CERVICAL SPINE: Straightening the cervical lordosis. Large multilevel endplate osteophytes. Moderate to severe disc volume loss at all cervical levels. Advanced multilevel hypertrophic facet arthropathy. Diffuse osteopenia. No acute fractures. No acute subluxations. No prevertebral soft tissue swelling. Hypertrophic degenerative changes at the atlantodental interval. Craniocervical junction is unremarkable. CT/CT head/brain wo con IMPRESSION: - No acute intracranial findings. There is global cerebral volume loss and there is mild chronic microangiopathy. - No acute osseous findings within the cervical spine. Multilevel cervical spondylosis.
--- NOTE | ~2021-11-30 | XR_ITS ---
EXAMINATION: XR CHEST CLINICAL INFORMATION: Low oxygen COMPARISON: CT chest 11/30/2021 TECHNIQUE: Frontal view of the chest was obtained. FINDINGS: The lungs are hypoexpanded but clear. The heart size and pulmonary vascularity is normal. No gross bony abnormality seen. XR/XR chest 1V IMPRESSION: Hypoexpanded lungs without acute process.
--- NOTE | ~2021-11-30 | XR_ITS ---
EXAMINATION: XR HUMERUS, RIGHT CLINICAL INFORMATION: Right arm pain status post fall. COMPARISON: None TECHNIQUE: AP and lateral views of the right humerus. FINDINGS: Acute, mildly displaced and distracted fracture of the mid diaphysis of the right humerus. There is approximate 1.4 cm lateral displacement of the distal fragment. The soft tissues are unremarkable. XR/XR humerus RT IMPRESSION: Acute, mildly displaced right humerus mid diaphysis fracture.
--- NOTE | ~2021-11-30 | MR_ITS ---
MRI OF THE BRAIN WITHOUT IV CONTRAST INDICATION: New onset confusion. COMPARISON: Head CT 12/01/2021. TECHNIQUE: Multiplanar multisequence MR imaging of the brain was obtained without IV contrast. FINDINGS: There is no hydrocephalus, extra-axial surface collection, or herniation. There is global cerebral volume loss and there is mild chronic microangiopathy. The major flow voids at the skull base are preserved. There is no acute infarct on diffusion-weighted imaging. There is no intracranial hemorrhage on the gradient recalled echo acquisition. The midline structures are normal. The cerebellar tonsils are normally positioned. The cerebellum and brainstem are normal. The craniocervical junction is normal. Osseous marrow signal intensity is homogenous. The visualized soft tissues are unremarkable. MR/MR head/brain wo con IMPRESSION: - There are no acute intracranial findings. - There is global cerebral volume loss and there is mild chronic microangiopathy.
--- NOTE | ~2021-11-30 | CT_ITS ---
EXAMINATION: CT HEAD WITHOUT IV CONTRAST CT CERVICAL SPINE WITHOUT IV CONTRAST INDICATION: Status post fall. COMPARISON: None available. TECHNIQUE: Multidetector CT acquisitions of the head and cervical spine were obtained without IV contrast. Multiplanar reformats were acquired and utilized for image interpretation. This CT examination was performed using dose optimization techniques as appropriate, variously including the following: *Automated exposure control *Adjustment of mA and/or kV according to patient size (this includes techniques or standardized protocols for targeted exams where dose is matched to indication/reason for exam; i.e. extremities or head) *Use of iterative reconstruction technique FINDINGS: HEAD: There is global cerebral volume loss and there is mild chronic microangiopathy. There is no intracranial hemorrhage, hydrocephalus, extra-axial surface collection, midline shift, or other herniation pattern. Ross to white matter differentiation is diffusely maintained without evidence of an evolved acute territorial infarct. The basilar cisterns are preserved. No significant soft tissue abnormality. No acute osseous abnormality. The paranasal sinuses and the mastoid air cells are well aerated. CERVICAL SPINE: Straightening the cervical lordosis. Large multilevel endplate osteophytes. Moderate to severe disc volume loss at all cervical levels. Advanced multilevel hypertrophic facet arthropathy. Diffuse osteopenia. No acute fractures. No acute subluxations. No prevertebral soft tissue swelling. Hypertrophic degenerative changes at the atlantodental interval. Craniocervical junction is unremarkable. CT/CT cervical spine wo con IMPRESSION: - No acute intracranial findings. There is global cerebral volume loss and there is mild chronic microangiopathy. - No acute osseous findings within the cervical spine. Multilevel cervical spondylosis.
[2021-11-30 12:42] VITALS: BP 130/80; BP 140/95; PULSE 79; PULSE 96; RESP 17; TEMP 36.7; O2SAT 94; O2SAT 96; BMI 26.4
[2021-11-30] MEDS: Morphine Sulfate 4 MG/ML CARTRIDGE IM (13:15)
[2021-11-30] MEDS: Ondansetron ODT 4 MG TAB.RAPDIS TRANSLINGU (13:16)
--- NOTE | 2021-11-30 13:31 | ED_ITS ---
HPI - Fall General Chief Complaint: Fall Stated Complaint: FALL Time Seen by Provider: 11/30/21 12:31 Source: patient, family (Son Edy at ) and EMS Mode of arrival: EMS Limitations: no limitations History of Present Illness HPI Narrative: 81-year-old male with a past medical history of BPH, rectal adenocarcinoma, hypercholesterolemia, GERD, BPH and Parkinson's disease who currently walks with a cane at home and lives alone on a two-story house presenting to the ED via EMS after he had a mechanical fall prior to arrival with right arm pain. He reports that he was walking on the steps and he lost his balance due to his Parkinson's disease he cannot lift up his legs to high into the air he reports ?my legs always feel heavy?. He reports he fell down the 2 steps that are carpeted and then his son who was in the house but did not witness the actual fall ran to the patient and son reports when he found his father his legs were up in the air he was on his right shoulder and his head/neck was against the wall. He reports he was able to pull his legs and have him lay flat on the stairs. There was no prolonged down time. Patient denies head injury although son reports that he believes he hit his head. There was no loss of consciousness. He is not on any blood thinners. He does have CNAs approximately 3-4 hours every day. He lives alone. Son lives approximately 1-2 hours away although he visits every weekend to help with his medications. Son reports that he was just evaluated for assisted living and he was supposed to transition for assisted living in 2 weeks. Son is now interested in short-term rehab to then transition to assisted living. Denies any symptoms prior to the fall reports this was mechanical. Denies any headaches, dizziness, change in vision, neck pain/injury, cough, sputum production, chest pain or shortness of breath, dyspnea on exertion, orthopnea, palpitations, paresthesias, lower extremity edema or calf tenderness, chest pain or shortness of breath, nausea/vomiting/diarrhea constipation, black or bloody stools, abdominal pain, back pain, dysuria, hematuria, abnormal penile discharge, rashes, recent travel or sick contacts or any other symptoms complaints or concerns at this time. MD complaint: fall Onset (ago): minute(s) ([employer]) Fall from: down stairs (#) (2 stairs carpeted ) Fall witnessed: no Place fall occurred: home Loss of consciousness: none Prolonged down time: no Symptoms prior to fall: none Context: tripped/slipped Location of injury - extremities: right: arm (Upper arm) Severity: moderate Quality: aching Associated symptoms (after fall): other (Unable to left the right upper arm) Related Data Home Medications Medication Instructions Recorded Confirmed atorvastatin 20 mg tablet 20 mg PO DAILY 01/14/21 11/30/21 carbidopa 25 mg-levodopa 100 mg 1 tab PO 0700,1300,1900 01/14/21 11/30/21 tablet carbidopa ER 50 mg-levodopa 200 mg 1 tab PO BEDTIME 01/14/21 11/30/21 tablet,extended release gabapentin 100 mg capsule 100 mg PO BID PRN Pain 01/14/21 11/30/21 naproxen 500 mg tablet 500 mg PO Q12H PRN pain 01/14/21 11/30/21 omeprazole 20 mg capsule,delayed 20 mg PO DAILY@0630 01/14/21 11/30/21 release potassium chloride 20 mEq 20 meq PO DAILY 08/21/21 11/30/21 tablet,extended release cholecalciferol (vitamin D3) 25 25 mcg PO DAILY 11/30/21 11/30/21 mcg (1,000 unit) capsule tamsulosin 0.4 mg capsule 0.8 mg PO BEDTIME 11/30/21 11/30/21 Previous Rx's Medication Instructions Recorded finasteride 5 mg tablet 5 mg PO DAILY 90 days #90 tabs 01/14/21 furosemide 20 mg tablet (Lasix) 20 mg PO DAILY 3 days #3 tabs 05/08/21 Allergies Allergy/AdvReac Type Severity Reaction Status Date / Time No Known Allergies Allergy Verified 08/21/21 08:23 [No Known Allergies*] Review of Systems Review of Systems: Constitutional : No changes in activity, No lethargy, No recent prior head injury, No agitation, No increased fussiness ENT/Mouth : No Ear Pain, No Nasal discharge/drainage Eyes: No Eye Pain, No Swelling, No Redness, No Foreign Body, No Vision Changes Cardiovascular : No Chest Pain, No SOB Respiratory : No Cough Gastrointestinal : No Nausea, No Vomiting, No abdominal Pain Genitourinary : No Dysuria, No Urinary Frequency, No Urinary Incontinence, No Urgency, No Flank Pain Musculoskeletal : + right upper arm joint pain, No neck stiffness, No back pain/injury Skin : No lacerations Neuro : No unsteady gait, No Paresthesias, No Loss of Consciousness, No altered mental status, No Headache Yes all other systems are reviewed and are negative [facility] Past Medical History Attestation statement: The following information was validated with the patient. Source: old records reviewed and nursing notes reviewed Medical History History of elevated PSA Surgical History History of rectal polypectomy History of rigid sigmoidoscopy Hx of colonoscopy Hx of rectal polypectomy Hx of surgical amputation of finger Family History Family History Father Lung cancer Mother Heart attack Social History Social History Alcohol intake: never Patient Tobacco Use Status: Never used Tobacco Use of substances other than those prescribed or required for medical reasons: No Advance Directives: Yes Advance Directives on File: Yes Advance Directives Date on File: 05/08/21 Physical Exam Vital Signs: Vital Signs: Last Vital Signs Temp 98.3 F 11/30/21 15:50 Pulse 103 H 11/30/21 15:50 Resp 18 11/30/21 15:50 BP 144/66 H 11/30/21 15:50 Pulse Ox 93 11/30/21 15:50 O2 Del Method 11/30/21 15:50 BMI result Body Mass Index 26.4 vital signs have been reviewed as normal and appeared to be correct. Blood pressure 140/95. Heart rate normal. Respiration rate normal. Temperature norm al. Oxygen saturation normal. Appearance: Alert. Oriented X3. No acute dis tress. Head: Normal external exam. Normocephalic. Atraumatic. No Smith signs noted. No raccoon eyes noted Eyes: PERRLA. EOMI. Conjunctiva and sclera normal. Eyelids normal. ENT: EAC normal. TM's Normal. No septal hematoma noted. No hemotympanum noted. Pharynx normal. Uvula midline. Moist mucous membranes. No lesions/ulcerations or masses noted on the tongue. Normal voice. No trismus noted. No drooling noted. No muffled voice noted. Neck: C-collar in place patient reports nontender although C-collar will not be removed at this time. Normal inspection. Neck supple. No adenopathy. Thyroid Normal. No tracheal deviation noted. No crepitus is noted. No meningeal signs. No neck mass noted. No signs of trauma noted. CVS: Normal heart rate and rhythm. Heart sound normal. Pulses normal throughout. No murmurs/rales/gallops. Respiratory: No respiratory distress. Painless inspiration. Breath sounds normal. No wheezes/rales/rhonchi noted. Chest nontender. No crepitus is noted. No signs of trauma noted. No accessory muscle usage noted or decreased air movement noted. No signs of trauma. Abdomen: Soft and nontender. Bowel sounds normal in all 4 quadrants. No distention noted. No organomegaly noted. No visible injury noted. Back: No CVA tenderness. Full range of motion noted. Nontender. No signs of trauma. Patient neuro intact bilaterally and distally on all 4 extremities. Patient's reflexes intact bilaterally and distally on all 4 extremities. No rashes/lesion/induration/fluctuance or signs of infection noted. Skin: Skin warm and dry. Normal skin color. Normal skin turgor. No rashes/lesions/lacerations noted. Extremities: To right mid arm patient has obvious deformity questioning mid humeral fracture. He does have full range of motion of hand and wrist joints. Is able to make a thumbs-up with his right hand/thumb/finger joints. He is also able to perform thumb opposition to right hand. He is able to make a fist with his right hand/fingers and wrist joint. He is able to grasp all my fingers. He is able to perform flexion/extension/ulnar deviation and pronation to the right wrist without any difficulty. Otherwise all other extremities exhibit normal range of motion nontender. No lower extremity edema. No calf tenderness is noted. Neuro: Oriented X 3. No motor deficit. No sensory deficit. Reflexes normal. Normal steady gait. No focal neuro deficits noted. CN's II-XII intact bilaterally? Vascular: + radial pulses/+ 2 distal pedal pulses/+2 dorsalis pedis b/l. Normal cap refill. No cyanosis noted to upper extremity nails and lower extremity toes nails. Course Course Course Narrative: 12:40pm - 81-year-old male with a past medical history of BPH, rectal adenocarcinoma, hypercholesterolemia, GERD, BPH and Parkinson's disease who currently walks with a cane at home and lives alone on a two-story house presenting to the ED via EMS after he had a mechanical fall prior to arrival with right upper arm pain due to difficulty lifting his legs when he walks he reports this is chronic due to his Parkinson's disease. He fell approximately 2 steps landing on his right shoulder/head and neck with his legs in the air. Son did not witness the fall although he heard the fall and ran immediately to his father. He reports that he was alert and did not lose consciousness. He is not on any blood thinners. He denies any other injuries complaints or concerns at this time. He denies any symptoms prior to the fall. He only has CNAs 3-4 hours every day. Son lives approximately 1-2 hours away although he visits every weekend to help with his medications and etc. Son reports that he was just evaluated for assisted living and he was supposed to transition for assisted living in 2 weeks. Son is now interested in short-term rehab to then transition to assisted living. Plan: Will obtain labs, CT scan of brain/cervical spine/chest/abdomen pelvis without IV contrast, x-ray of right humerus, UA provide 4 mg of IM morphine and 4 mg of p.o. Zofran and re-evaluate Reevaluation(s) Reevaluation #1: - labs return patient's BUN/creatinine 23/1.62 this is new for the patient. Otherwise all other labs are within normal limits. - right humerus x-ray revealed acute mildly displaced right humerus mid diaphysis fracture therefore consulted with orthopedic KATERINA Rodriguez who recommended up posterior long-arm splint with sling and swath they report that this is not a surgical procedure at this time that he can follow-up as an outpatient basis. - still pending CT scan of brain/cervical spine/chest and abdomen pelvis along with UA. Then patient will be seen by physical therapy/case management for possible placement for short-term rehab then transition to assisted living per the son request. Time: 15:12 Reevaluation #2: - CT scan of chest revealed fractures of ribs 6. And 7 on the right without fragment displacement otherwise no other acute processes noted. - CT scan abdomen pelvis revealed diffuse osteopenia and large bilateral renal cysts with hepatic steatosis and Diastases recti. Otherwise no other acute processes. - therefore at this time patient medically cleared and placed in physician observation because the patient needs more time to be evaluated by physical therapy for possible short-term rehab then transition to assisted living as requested by the son Edy and the plan was over the past 2 weeks Time: 16:28 Procedures Orthopedic Splinting/Casting Injury #1: Side: right Upper Extremity Injury Location: upper arm Upper Extremity Immobilizer: sling/shoulder immobilizer and posterior splint (long arm) MDM - Fall Medical Records Attestation: I reviewed the patient's medical records. Lab Data Attestation: I reviewed the patient's lab results. Result diagrams: 11/30/21 13:52 11/30/21 13:52 Labs: Lab Results 11/30/21 11/30/21 11/30/21 Range/Units 13:52 13:52 13:52 WBC 8.0 (4.8-10.8) X10*3/uL RBC 4.83 (4.60-5.80) X10*6/uL Hgb 15.1 (14.0-18.0) g/dl Hct 46.1 (42.0-52.0) % MCV 95.4 (80.0-98.0) fL MCH 31.3 (27.0-33.0) pg MCHC 32.8 (31.0-36.0) g/dl RDW 12.6 (11.0-16.0) % Plt Count 139 L (160-400) X10*3/uL MPV 10.8 (9.4-12.4) fL Immature Gran % (Auto) 0.5 H (0.0-0.4) % Neut % (Auto) 84.9 H (45-73) % Lymph % (Auto) 6.4 L (20-40) % Sanborn % (Auto) 6.9 (2-11) % Eos % (Auto) 1.0 (0-4) % Baso % (Auto) 0.3 (0-2) % Lymph # (Auto) 0.5 L (1.2-4.9) X10*3/uL Sanborn # (Auto) 0.6 (0.1-1.2) X10*3/uL Eos # (Auto) 0.1 (0.0-0.4) X10*3/uL Baso # (Auto) 0.0 (0.0-0.2) X10*3/uL Abs Immat Gran (auto) 0.04 H (0.00-0.03) X10*3/uL Absolute Neuts (auto) 6.8 (2.0-8.3) x10*3/uL Absolute Nucleated RBC 0.000 (0.0-0.012) X10*3/uL Nucleated RBC % (auto) 0.0 (0.0-0.2) /100WBC PT 12.3 (10.0-13.1) SEC INR 1.1 (0.9-1.1) Sodium 144 (135-145) mmol/L Potassium 4.7 (3.3-5.1) mmol/L Chloride 106 (96-108) mmol/L Carbon Dioxide 26 (22-29) mmol/L Anion Gap 17 (12-20) BUN 23 H (9-16) mg/dL Creatinine 1.62 H (0.5-1.4) mg/dL Estim Creat Clear Calc 37.9 Estimated GFR 41 Random Glucose 114 (60-115) mg/dL Calcium 9.3 (8.4-10.2) mg/dL Magnesium 2.0 (1.6-2.6) mg/dL Total Bilirubin 0.7 (0.0-1.0) mg/dL AST 21 (5-37) U/L ALT < 6 (0-40) U/L Alkaline Phosphatase 91 (39-117) U/L Troponin I High Sens (<3.5-35.0) ng/L B-Natriuretic Peptide (<100) pg/mL Total Protein 6.6 (6.5-8.0) g/dL Albumin 3.7 (3.5-5.0) g/dL 11/30/21 Range/Units 13:52 WBC (4.8-10.8) X10*3/uL RBC (4.60-5.80) X10*6/uL Hgb (14.0-18.0) g/dl Hct (42.0-52.0) % MCV (80.0-98.0) fL MCH (27.0-33.0) pg MCHC (31.0-36.0) g/dl RDW (11.0-16.0) % Plt Count (160-400) X10*3/uL MPV (9.4-12.4) fL Immature Gran % (Auto) (0.0-0.4) % Neut % (Auto) (45-73) % Lymph % (Auto) (20-40) % Sanborn % (Auto) (2-11) % Eos % (Auto) (0-4) % Baso % (Auto) (0-2) % Lymph # (Auto) (1.2-4.9) X10*3/uL Sanborn # (Auto) (0.1-1.2) X10*3/uL Eos # (Auto) (0.0-0.4) X10*3/uL Baso # (Auto) (0.0-0.2) X10*3/uL Abs Immat Gran (auto) (0.00-0.03) X10*3/uL Absolute Neuts (auto) (2.0-8.3) x10*3/uL Absolute Nucleated RBC (0.0-0.012) X10*3/uL Nucleated RBC % (auto) (0.0-0.2) /100WBC PT (10.0-13.1) SEC INR (0.9-1.1) Sodium (135-145) mmol/L Potassium (3.3-5.1) mmol/L Chloride (96-108) mmol/L Carbon Dioxide (22-29) mmol/L Anion Gap (12-20) BUN (9-16) mg/dL Creatinine (0.5-1.4) mg/dL Estim Creat Clear Calc Estimated GFR Random Glucose (60-115) mg/dL Calcium (8.4-10.2) mg/dL Magnesium (1.6-2.6) mg/dL Total Bilirubin (0.0-1.0) mg/dL AST (5-37) U/L ALT (0-40) U/L Alkaline Phosphatase (39-117) U/L Troponin I High Sens 6.4 (<3.5-35.0) ng/L B-Natriuretic Peptide 65 (<100) pg/mL Total Protein (6.5-8.0) g/dL Albumin (3.5-5.0) g/dL Imaging Data Right humerus xray: Attestation: I personally reviewed and interpreted this imaging study as follows: Radiologist's impression: FINDINGS: Acute, mildly displaced and distracted fracture of the mid diaphysis of the right humerus. There is approximate 1.4 cm lateral displacement of the distal fragment. The soft tissues are unremarkable. XR/XR humerus RT IMPRESSION: Acute, mildly displaced right humerus mid diaphysis fracture. CT scan of brain/cervical spine without contrast: Attestation: I personally reviewed and interpreted this imaging study as follows: Radiologist's impression: HEAD: There is global cerebral volume loss and there is mild chronic microangiopathy. There is no intracranial hemorrhage, hydrocephalus, extra-axial surface collection, midline shift, or other herniation pattern. Ross to white matter differentiation is diffusely maintained without evidence of an evolved acute territorial infarct. The basilar cisterns are preserved. No significant soft tissue abnormality. No acute osseous abnormality. The paranasal sinuses and the mastoid air cells are well aerated. CERVICAL SPINE: Straightening the cervical lordosis. Large multilevel endplate osteophytes. Moderate to severe disc volume loss at all cervical levels. Advanced multilevel hypertrophic facet arthropathy. Diffuse osteopenia. No acute fractures. No acute subluxations. No prevertebral soft tissue swelling. Hypertrophic degenerative changes at the atlantodental interval. Craniocervical junction is unremarkable. CT/CT head/brain wo con IMPRESSION: - No acute intracranial findings. There is global cerebral volume loss and there is mild chronic microangiopathy. ? - No acute osseous findings within the cervical spine. Multilevel cervical spondylosis. CT scan of chest along with abdomen and pelvis: Attestation: I personally reviewed and interpreted this imaging study as follows: Radiologist's impression: FINDINGS: LUNGS: The lungs are clear with no evidence of inflammation or nodules. ? MEDIASTINUM: The mediastinum appears unremarkable.? PLEURA: There is no pleural effusion. No pleural mass or thickening.? AXILLA: No lymphadenopathy.? LIVER, GALLBLADDER, AND BILIARY TREE: Liver is of low attenuation due to hepatic steatosis without intrahepatic masses or ductal dilatation. Bladder physiologically distended without stones.? PANCREAS: Unremarkable? SPLEEN: Unremarkable? ADRENAL GLANDS: Unremarkable? KIDNEYS AND URETERS: The bilateral exophytic simple cysts with the largest lobulated cyst on the left along the lateral aspect of the kidney measured 15.5 x 8.2 x 12.6 cm and another cyst on the left measured 9.1 x 8.5 x 8.2 cm on the right there is an exophytic lower pole 7.9 x 7.2 x 7.4 cm. No hydronephrosis or stones. Ureters are not dilated.? BLADDER: Unremarkable? GASTROINTESTINAL TRACT: Changes of sigmoid colon diverticulosis without diverticulitis. No evidence of bowel obstruction. Appendix is unremarkable ABDOMINAL WALL: There is diastases recti? LYMPH NODES: No evidence of adenopathy by size criteria. VASCULAR: Abdominal aorta is calcified but not dilated PELVIC VISCERA: Prostate is enlarged and heterogeneous. Seminal vesicles unremarkable. Phleboliths seen in the pelvis. OSSEOUS STRUCTURES: There are fractures of ribs #7 and 6 on the right along the anterior axillary line on the right. Ribs #6 broken in 2 places. There is subcutaneous fatty haziness in the right gluteal area related to trauma. Less prominent haziness seen in the lower flank subcutaneously.? There are multilevel degenerative changes and osteopenia. CT/CT chest wo con IMPRESSION: ? Fracture of ribs numbers 6 and 7 on the right without fragment displacement. Diffuse osteopenia There are large bilateral renal cysts. Hepatic steatosis. Diastases recti. ? ECG Data Attestation: I personally reviewed and interpreted this ECG as follows: ECG interpretation date: 11/30/21 Critical Care Time Critical Care Time Critical Care Time: Yes Total Critical Care Time: 60 Attestation: I personally attest to this time spent taking care of the patient Discharge Plan Discharge Clinical Impression: Fall, HEATHER (acute kidney injury), Acute dehydration, Right rib fracture Closed right humeral fracture Qualifiers: Encounter type: initial encounter Humerus Location: shaft Fracture alignment: displaced Patient Disposition: Still a Patient Prescriptions: No Action furosemide [Lasix] 20 mg tablet 20 mg PO DAILY 3 Days Qty: 3 0RF tamsulosin 0.4 mg capsule 0.8 mg PO BEDTIME cholecalciferol (vitamin D3) 25 mcg (1,000 unit) Capsule 25 mcg PO DAILY naproxen 500 mg tablet 500 mg PO Q12H PRN (Reason: pain) gabapentin 100 mg capsule 100 mg PO BID PRN (Reason: Pain) omeprazole 20 mg capsule,delayed release(DR/EC) 20 mg PO DAILY@0630 carbidopa-levodopa 50-200 mg tablet extended release 1 tab PO BEDTIME carbidopa-levodopa 25-100 mg tablet 1 tab PO 0700,1300,1900 atorvastatin 20 mg tablet 20 mg PO DAILY finasteride 5 mg tablet 5 mg PO DAILY 90 Days Qty: 90 3RF potassium chloride 20 mEq tablet extended release 20 meq PO DAILY
[2021-11-30 13:56] LABS: Hematocrit 46.1 % (42.0-52.0); Hemoglobin 15.1 g/dl (14.0-18.0); MANUAL DIFF FLAG NO; Mean Corpuscular HGB Conc 32.8 g/dl (31.0-36.0); Mean Corpuscular Hemoglobin 31.3 pg (27.0-33.0); Mean Corpuscular Volume 95.4 fL (80.0-98.0); PLT CLUMP 1; Red Blood Count 4.83 X10*6/uL (4.60-5.80); Red Cell Distribution Width 12.6 % (11.0-16.0); SCAN SMEAR FLAG 1
[2021-11-30 13:58] LABS: Basophils Percent Auto 0.3 % (0-2); Eosinophils Absolute Auto 0.1 X10*3/uL (0.0-0.4); Imm Gran Abs Auto 0.04 X10*3/uL (0.00-0.03); Imm Gran Pct Auto 0.5 % (0.0-0.4); Lymphocytes Absolute Auto 0.5 X10*3/uL (1.2-4.9); Lymphocytes Percent Auto 6.4 % (20-40); Mean Platelet Volume 10.8 fL (9.4-12.4); Monocytes Absolute Auto 0.6 X10*3/uL (0.1-1.2); Monocytes Percent Auto 6.9 % (2-11); Neutrophils Absolute Auto 6.8 x10*3/uL (2.0-8.3); Neutrophils Percent Auto 84.9 % (45-73)
[2021-11-30 14:00] LABS: Platelet Count 139 X10*3/uL (160-400)
[2021-11-30 14:08] LABS: INTERNATIONAL NORM RATIO 1.1 (0.9-1.1); Prothrombin Time 12.3 SEC (10.0-13.1)
[2021-11-30 14:18] LABS: B Type Natriuretic Peptide 65 pg/mL (<100)
[2021-11-30 14:22] LABS: Alanine Aminotransferase < 6 U/L (0-40); Albumin Level 3.7 g/dL (3.5-5.0); Alkaline Phosphatase 91 U/L (39-117); Anion Gap 17 (12-20); Aspartate Amino Transferase 21 U/L (5-37); Bilirubin Total 0.7 mg/dL (0.0-1.0); Blood Urea Nitrogen 23 mg/dL (9-16); Calcium 9.3 mg/dL (8.4-10.2); Carbon Dioxide 26 mmol/L (22-29); Chloride 106 mmol/L (96-108); Creatinine Clr Calc Pharmacy 37.9; Estimated Glomerular Filt Rate 41; Glucose Random 114 mg/dL (60-115); Potassium 4.7 mmol/L (3.3-5.1); Sodium 144 mmol/L (135-145); Total Protein 6.6 g/dL (6.5-8.0)
--- NOTE | 2021-11-30 15:18 | ECG_ITS ---
Test Reason : FALL Blood Pressure : / mmHG Vent. Rate : 100 BPM Atrial Rate : 100 BPM P-R Int : 172 ms QRS Dur : 072 ms QT Int : 358 ms P-R-T Axes : 062 -26 -02 degrees QTc Int : 461 ms Normal sinus rhythm Normal ECG When compared with ECG of 08-MAY-2021 12:41, Premature ventricular complexes are no longer Present Heart rate has increased Referred By: Federica Bridges Electronically Signed By:JAYNE LOZANO
[2021-11-30] MEDS: 0.9 % Sodium Chloride 1,000 ML 999 ML IVCONT (15:27)
[2021-11-30 15:36] LABS: Troponin-I High Sensitivity 6.4 ng/L (<3.5-35.0)
--- NOTE | 2021-11-30 15:45 | PC.NURSE ---
Pt axox3, moist mm, poor bed mobility, c collar in place initially and removed by provider, incontinent of urine and cleansed. redness to folds in groin, barrier cream applied. 3M full length splint to right arm. positive CSM to fingers, palpable radial pulse. pt c/o lower back pain (chronic), pt aware of plan for short term rehab placement out of ED. Awaits Pharmacy for med rec.
[2021-11-30 15:50] VITALS: BP 144/66; PULSE 103; RESP 18; TEMP 36.8; O2SAT 93
--- NOTE | 2021-11-30 15:53 | PC.NURSE ---
Pt axox3, moist mm, recounted events of fall with accuracy, poor bed mobility, right arm in full length splint, good CSM, brisk cap refill, palpable radial pulse. incontinent of urine, cleansed and barrier cream applied, c collar in place initially and removed by provider. pt aware of plan for sht term rehab, complaining of chronic lower back pain. awaits pharmacy for med rec.
[2021-11-30] MEDS: oxyCODONE HCl Immed Release 5 MG TABLET PO ×2 (16:04→20:34)
--- NOTE | 2021-11-30 16:27 | PHA.MEDREC ---
Pharmacy Consult ? Medication Reconciliation Pharmacy has completed the medication reconciliation.
[2021-11-30 18:18] LABS: Troponin-I High Sensitivity 16.4 ng/L (<3.5-35.0)
--- NOTE | 2021-11-30 19:58 | PC.NURSE ---
sleeping. po pain meds held for a while. skin pwd.
--- NOTE | 2021-11-30 20:35 | PC.NURSE ---
remains axox3. assisted to have water, pudding. repositioned in bed. was able to use urinal w/o assistance.
[2021-11-30 21:00] VITALS: BP 141/77; PULSE 105; RESP 18; TEMP 36.7; O2SAT 92
[2021-11-30 21:30] LABS: COVID-19 Test Negative (Negative); IDNOW Serial# 08D9AD1C
[2021-11-30] MEDS: Carbidopa/Levodopa CR 50/200 TABLET.ER 1 TAB PO (22:48)
[2021-11-30] MEDS: Tamsulosin HCL 0.4 MG CAPSULE 0.8 MG PO (22:48)
[2021-11-30 23:46] VITALS: BP 132/72; PULSE 106; RESP 16; O2SAT 91
[2021-12-01] MEDS: oxyCODONE HCl Immed Release 5 MG TABLET PO ×3 (02:38→14:32)
--- NOTE | 2021-12-01 02:38 | PC.NURSE ---
medicated per provider order.
--- NOTE | 2021-12-01 06:06 | PC.NURSE ---
Pt awake, confused but pleasant requesting that staff help get me out of here , pt continues to talk about a movie and people getting arrested. Pt able to follow simple commands and redirectable. Pt relocated to ED bed 9 for carolyn care due to incontinence and left there with propellant charge loader approval with hopes that the tv can act as a distraction. Pt without distress noted, +CMS to the right hand. Bed alarm in place and call crook in reach.
[2021-12-01] MEDS: Omeprazole 20 MG CAPSULE.DR PO (06:46)
[2021-12-01 07:32] LABS: Anion Gap 15 (12-20); Blood Urea Nitrogen 28 mg/dL (9-16); Calcium 8.9 mg/dL (8.4-10.2); Carbon Dioxide 26 mmol/L (22-29); Chloride 109 mmol/L (96-108); Estimated Glomerular Filt Rate 40; Glucose Random 118 mg/dL (60-115); Potassium 5.1 mmol/L (3.3-5.1); Sodium 145 mmol/L (135-145)
[2021-12-01 07:58] VITALS: BP 150/73; PULSE 95; RESP 16; O2SAT 94
[2021-12-01] MEDS: 0.9 % Sodium Chloride 1,000 ML 999 ML IVCONT ×3 (08:26→16:00)
[2021-12-01] MEDS: Potassium Chloride ER 20 MEQ TAB.ER.PRT PO (08:31)
[2021-12-01] MEDS: Cholecalciferol (Vitamin D3) 25 MCG TABLET PO (08:31)
[2021-12-01] MEDS: Furosemide 20 MG TABLET PO (08:32)
[2021-12-01] MEDS: Carbidopa/Levodopa 25/100 TABLET 1 TAB PO ×3 (08:32→20:33)
--- NOTE | 2021-12-01 08:37 | PC.NURSE ---
pt is alert oriented to person only at this time. Medicated as per MAR orders, attempted to place [place] cath but pt refused. Pt is inc of urine at this time. Fluids running as per orders, call crook within reach, bed alarm on. Will continue to monitor
[2021-12-01] MEDS: Atorvastatin Calcium 20 MG TABLET PO (10:38)
[2021-12-01] MEDS: Finasteride 5 MG TABLET PO (10:38)
[2021-12-01 12:17] LABS: Troponin-I High Sensitivity 43.4 ng/L (<3.5-35.0)
--- NOTE | 2021-12-01 12:49 | ECG_ITS ---
Test Reason : REPEAT D/T ELEVATED TROP Blood Pressure : / mmHG Vent. Rate : 102 BPM Atrial Rate : 102 BPM P-R Int : 168 ms QRS Dur : 076 ms QT Int : 344 ms P-R-T Axes : 048 -18 017 degrees QTc Int : 448 ms Sinus tachycardia with frequent Premature ventricular complexes Otherwise normal ECG When compared with ECG of 30-NOV-2021 17:58, Premature ventricular complexes are now Present Referred By: Federica Bridges Electronically Signed By:JAYNE LOZANO
--- NOTE | 2021-12-01 12:59 | MHC.CM.ED ---
Received case management consult overnight. Patient came to the ER due to a fall. Work up is still pending at this time due to repeat labs. Federica BORGES aware to order PT eval when medical work up is negative. Continue to monitor for d/c needs.
--- NOTE | 2021-12-01 13:13 | PC.NURSE ---
Per PA, pt more confused today than yesterday. Pt Alert, [place] and [place] of date or year but does know who the president it. Pt accidentally removed IV, IV replaced by this RN. Plan for repeat CT scan of the head at this time. Call crook within reach, son at bedside and aware of POC, will continue to monitor.
[2021-12-01 13:27] LABS: Anion Gap 15 (12-20); Blood Urea Nitrogen 26 mg/dL (9-16); Calcium 8.2 mg/dL (8.4-10.2); Carbon Dioxide 24 mmol/L (22-29); Chloride 111 mmol/L (96-108); Creatinine Clr Calc Pharmacy 39.3; Estimated Glomerular Filt Rate 43; Glucose Random 124 mg/dL (60-115); Potassium 4.6 mmol/L (3.3-5.1); Sodium 145 mmol/L (135-145)
[2021-12-01 14:27] VITALS: BP 171/73; PULSE 99; RESP 16; O2SAT 91
[2021-12-01 15:27] LABS: B Type Natriuretic Peptide 104 pg/mL (<100)
[2021-12-01 16:00] VITALS: BP 131/61; PULSE 79; RESP 12; O2SAT 97
[2021-12-01] MEDS: Acetaminophen 325 MG TABLET 650 MG PO (19:14)
--- NOTE | 2021-12-01 20:04 | PC.NURSE ---
Pt transported to MRI.
[2021-12-01 20:49] VITALS: BP 160/64; PULSE 101; RESP 14; O2SAT 94
[2021-12-01] MEDS: Carbidopa/Levodopa CR 50/200 TABLET.ER 1 TAB PO (21:35)
[2021-12-01] MEDS: Tamsulosin HCL 0.4 MG CAPSULE 0.8 MG PO (21:35)
--- NOTE | 2021-12-01 22:12 | MHC.CM.ED ---
Awaiting MRI brain. Work up still pending. PT not yet ordered. No referrals placed at this time pending PT evaluation. CM to follow for d/c needs.
[2021-12-02] VITALS (10 sets, daily range): BP systolic 158–211; BP diastolic 59–96; PULSE 79–100; RESP 14–22; TEMP 36.1–37.3; O2SAT 92–98
[2021-12-02] MEDS: Acetaminophen 325 MG TABLET 650 MG PO ×4 (02:00→19:48)
[2021-12-02] MEDS: QUEtiapine Fumarate 25 MG TABLET PO (02:01)
[2021-12-02] MEDS: Omeprazole 20 MG CAPSULE.DR PO (06:48)
[2021-12-02] MEDS: Furosemide 20 MG TABLET PO (09:00)
[2021-12-02] MEDS: Cholecalciferol (Vitamin D3) 25 MCG TABLET PO (09:00)
[2021-12-02] MEDS: Atorvastatin Calcium 20 MG TABLET PO (09:00)
[2021-12-02] MEDS: Potassium Chloride ER 20 MEQ TAB.ER.PRT PO (09:01)
[2021-12-02] MEDS: Finasteride 5 MG TABLET PO ×2 (09:37→09:54)
[2021-12-02] MEDS: Carbidopa/Levodopa 25/100 TABLET 1 TAB PO ×2 (09:54→11:56)
[2021-12-02 11:10] LABS: Glucose, Whole Blood 79 mg/dL (60-115)
[2021-12-02 11:33] LABS: Appearance Urine Clear; Color Urine Yellow; Glucose Urine UA Negative (Negative); Leukocyte Esterase Urine Negative (Negative); Nitrite Urine Negative (Negative); PH 5.5 (5.0-8.0); Specific Gravity - Urine 1.025 (1.005-1.025); Urine Blood Negative (Negative); Urine Ketones 15 mg/dL (Negative); Urine Protein Trace mg/dL (Neg-Trace)
--- NOTE | 2021-12-02 12:40 | MHC.CM.ED ---
Patient remains in ER. Work up essentially negative. Patient is still intermittently confused. Physical therapy eval completed. Short term rehab is recommended. Met with patient and son, Edy in regards to discharge planning. Patient lives alone, ambulates with a cane and [facility] PCP reynold. Patient received 2 Pfizer vaccines but is no boosters. Copy of HCP verified to be on file. List of facilities contracted with patient's insurance provided to patient and Edy. [facility]. [facility]nd [facility]. Referral made via [facility]. Continue to monitor for d/c needs.
[2021-12-02] MEDS: risperiDONE 0.5 MG TABLET PO (12:43)
--- NOTE | 2021-12-02 12:43 | PC.NURSE ---
sr on monitor, skin wpd, has been agitated on/off w son here, now calm, medicated as ordered, declining food and drink at this time
--- NOTE | 2021-12-02 19:13 | PC.NURSE ---
patient ate 20 % of meal ,drank 240 ml of milk .
--- NOTE | 2021-12-02 19:14 | PC.NURSE ---
PATIENT WAS INC OF LARGE AMOUNT OF URINE ,BED BATH GIVEN AND [place] CATH IN PLACED .
--- NOTE | 2021-12-02 20:00 | PC.NURSE ---
PATIENT WAS GIVEN AN ICE CREAM FOR SNACK .
[2021-12-02] MEDS: Tamsulosin HCL 0.4 MG CAPSULE 0.8 MG PO (20:40)
[2021-12-02] MEDS: Carbidopa/Levodopa CR 50/200 TABLET.ER 1 TAB PO (20:40)
--- NOTE | 2021-12-02 21:19 | PC.NURSE ---
Amlodipine 5mg PO ordered for one dose now and then daily starting tomorrow morning at 0900 re: HTN
[2021-12-02] MEDS: amLODIPine Besylate 5 MG TABLET PO (21:25)
--- NOTE | 2021-12-02 23:01 | PC.NURSE ---
PATIENT PULLED OUT [employer] CAT ,[employer] ,CARE GIVEN ,[facility] CATH IN PLACE ,PATIENT HAD ICE CREAM .
[2021-12-03 06:19] VITALS: BP 179/83; PULSE 100; RESP 19; TEMP 36.8; O2SAT 94
[2021-12-03] MEDS: Acetaminophen 325 MG TABLET 650 MG PO ×3 (07:34→18:35)
[2021-12-03] MEDS: Omeprazole 20 MG CAPSULE.DR PO ×2 (07:35→07:37)
[2021-12-03] MEDS: Carbidopa/Levodopa 25/100 TABLET 1 TAB PO ×3 (07:38→18:36)
[2021-12-03 07:40] VITALS: BP 175/74; PULSE 99; RESP 17; TEMP 36.7; O2SAT 92
[2021-12-03 07:54] VITALS: BP 175/74; PULSE 90; RESP 14; O2SAT 93
--- NOTE | 2021-12-03 07:55 | PC.NURSE ---
PT WAKE, REFUSING BKFST. ALERT AND ORIENTED.
[2021-12-03] MEDS: Potassium Chloride ER 20 MEQ TAB.ER.PRT PO (10:47)
[2021-12-03] MEDS: Cholecalciferol (Vitamin D3) 25 MCG TABLET PO (10:47)
[2021-12-03] MEDS: Finasteride 5 MG TABLET PO ×2 (10:47→10:48)
[2021-12-03] MEDS: Atorvastatin Calcium 20 MG TABLET PO ×2 (10:48)
[2021-12-03] MEDS: amLODIPine Besylate 5 MG TABLET PO (10:48)
[2021-12-03] MEDS: Furosemide 20 MG TABLET PO (10:49)
[2021-12-03] MEDS: risperiDONE 0.5 MG TABLET PO (10:49)
--- NOTE | 2021-12-03 11:21 | MHC.CM.ED ---
Patient remains in . [facility] and [facility] are not able to offer beds today. Referral broadcasted in [facility]. At this time [facility], [facility] and [facility] are able to offer a bed. Spoke with patient and son, Edy. [facility] is 1st choice. Mikaela has been asked to go for insurance auth. Continue to monitor for d/c needs.
[2021-12-03 15:01] VITALS: BP 165/73; PULSE 85; RESP 16; O2SAT 95
== END 2021-12-03 19:50 | disposition skilled nursing facility (03) ==
PROVIDERS: Physician Assistant; Physician Assistant Medical; Emergency Provider Emergency Medicine; PCP Internal Medicine Medical Oncology
DX: S42.301A Unspecified fracture of shaft of humerus, right arm, initial encounter for closed fracture (principal); S22.41XA Multiple fractures of ribs, right side, initial encounter for closed fracture; R51.9 Headache, unspecified; M54.2 Cervicalgia; R07.81 Pleurodynia; M79.601 Pain in right arm; R06.02 Shortness of breath; R07.89 Other chest pain; E86.0 Dehydration; W10.9XXA Fall (on) (from) unspecified stairs and steps, initial encounter; Y93.9 Activity, unspecified; Y92.9 Unspecified place or not applicable; Y99.9 Unspecified external cause status; Z20.822 Contact with and (suspected) exposure to COVID-19; Z79.899 Other long term (current) drug therapy
CPT/HCPCS: 29105; 36415; 70450; 70551; 71045; 71250; 72125; 73060; 74176; 80048; 80053; 81003; 82550; 82947; 83735; 83880; 84484; 85025; 85610; 87635; 93005; 96360; 96361; 97162; 99285; J2270

== ENCOUNTER 2021-12-25 | Outpatient (REF) | payer MEDICARE, SELFPAY ==
--- NOTE | ~2021-12-25 | XR_ITS ---
EXAMINATION: XR HUMERUS, RIGHT CLINICAL INFORMATION: Pain. COMPARISON: Right humerus 11/30/2021. TECHNIQUE: AP and lateral views of the right humerus. FINDINGS: There is a displaced right mid humeral fracture with some callus formation since the last exam. The soft tissues are normal. XR/XR humerus RT IMPRESSION: No change in displaced mid humeral fracture with minimal callus formation seen at this time.
== END 2021-12-25 00:01 | disposition home or self-care (01) ==
LOC: HO.HOSX
PROVIDERS: Visit Provider Physician Assistant
DX: S42.301A Unspecified fracture of shaft of humerus, right arm, initial encounter for closed fracture (principal)
CPT/HCPCS: 73060; 99202

== ENCOUNTER 2022-01-22 | Outpatient (REF) | payer MEDICARE, SELFPAY ==
--- NOTE | ~2022-01-22 | XR_ITS ---
EXAMINATION: XR HUMERUS, RIGHT CLINICAL INFORMATION: Fracture shaft of humerus. COMPARISON: Right humerus 12/25/2021 TECHNIQUE: AP and lateral views of the right humerus. FINDINGS: There is a displaced right mid humeral fracture with abundant callus formation at this time. No other fracture seen. There is no shoulder dislocation. The soft tissues are normal. XR/XR humerus RT IMPRESSION: Slow healing right mid humeral fracture with abundant callus formation. Significant callus formation since the last exam 12/25/2021.
== END 2022-01-22 00:01 | disposition home or self-care (01) ==
LOC: HO.HOSX
PROVIDERS: Visit Provider Physician Assistant
DX: S42.301D Unspecified fracture of shaft of humerus, right arm, subsequent encounter for fracture with routine healing (principal); W19.XXXD Unspecified fall, subsequent encounter
CPT/HCPCS: 73060; 99212